=== PATIENT | female | born 1995 | race Caucasian/White ===

== ENCOUNTER 2019-09-06 15:25 | Day surgery (SDC) | payer SELFPAY ==
[2019-09-06] MEDS ORDERED: hydrALAZINE 20 MG/ML VIAL SLOW IVP PRN (15:41)
[2019-09-06 16:01] LABS: #Basophils 0.1 thou/uL (0.0-0.2); #Eosinphils 0.2 thou/uL (0.0-0.7); #Lymphocytes 1.9 thou/uL (1.20-3.40); #Monocytes 0.7 thou/uL (0.11-0.59); #Neutrophils 6.1 thou/uL (1.40-6.50); %Basophils 0.6 % (0.0-1.0); %Eosinophils 2.2 % (0.0-10.0); %Lymphocytes 21.5 % (21.0-51.0); %Monocytes 7.8 % (0.0-10.0); Hemoglobin 11.3 g/dL (12.0-16.0); Mean Corpuscular HGB CONC 33.9 g/dL (32.0-36.0); Mean Corpuscular Hemoglobin 29.1 pg (27.0-31.0); Mean Corpuscular Volume 85.8 fL (78.0-98.0); Mean Platelet Volume 8.3 fL (7.4-10.4); Platelet Count 239 thou/uL (130-400); RBC Distribution Width 12.9 % (11.5-14.5); Red Blood Cell (RBC) Count 3.87 mill/uL (4.20-5.40)
[2019-09-06 16:25] LABS: ALT (SGPT) 14 U/L (8-55); AST (SGOT) 17 U/L (5-34); Albumin 3.3 g/dL (3.5-5.0); Alkaline Phosphatase 138 U/L (40-110); Anion Gap 7 mmol/L (10-20); BUN (Urea Nitrogen) 9 mg/dL (7.0-18.7); Bilirubin, Total 0.2 mg/dL (0.2-1.2); Calc. Creatinine Clearance 0 mL/min (70-130); Calcium 8.9 mg/dL (7.8-10.44); Carbon Dioxide 28 mmol/L (22-29); Chloride 105 mmol/L (98-107); Estimated GFR-MDRD Greater than 90; Globulin 3.4 g/dL (2.4-3.5); Glucose 90 mg/dL (70-105); Potassium 3.9 mmol/L (3.5-5.1); Protein, Total 6.7 g/dL (6.0-8.3); Sodium 136 mmol/L (136-145)
[2019-09-06 16:27] VITALS: BP 135/81; TEMP 98.3; BMI 28.5
[2019-09-06 17:08] LABS: Creatinine, Urine 174.4 mg/dL (47-110)
== END 2019-09-06 19:08 | disposition home or self-care (01) ==
LOC: L&D/OP 15:25
PROVIDERS: ATTEND Advanced Practice Midwife
DX: O16.9 Unspecified maternal hypertension, unspecified trimester (principal); Z3A.00 Weeks of gestation of pregnancy not specified
CPT/HCPCS: 36415; 80053; 82570; 84156; 85025

== ENCOUNTER 2019-09-10 09:26 | Inpatient (IN) | payer SELFPAY ==
[2019-09-10 09:55] VITALS: BMI 28.5
[2019-09-10] MEDS ORDERED: NS / Oxytocin 40 units/1000ml 1,000 ML IV PRN (09:56)
[2019-09-10] MEDS ORDERED: Carboprost 250 MCG/ML AMP IM PRN (09:56)
[2019-09-10] MEDS ORDERED: hydrALAZINE 20 MG/ML VIAL SLOW IVP PRN ×2 (09:56→14:07)
[2019-09-10] MEDS ORDERED: HYDROcodone/Acetaminophen 5/325 mg Tablet PO PRN ×4 (09:56→14:07)
[2019-09-10] MEDS ORDERED: Ondansetron PF 4 MG/2 ML Vial IVP PRN ×2 (09:56→14:07)
[2019-09-10] MEDS ORDERED: Lidocaine 1% (PF) 30 ML VIAL SC PRN (09:56)
[2019-09-10] MEDS ORDERED: Misoprostol 200 MCG TAB PR PRN (09:56)
[2019-09-10] MEDS ORDERED: Ibuprofen 800 MG TAB PO PRN (09:56)
[2019-09-10] MEDS ORDERED: Butorphanol Tartrate 1 MG/ML VIAL SLOW IVP PRN (09:56)
[2019-09-10] MEDS ORDERED: Lactated Ringer's 1,000 ML IV PRN (09:56)
[2019-09-10] MEDS ORDERED: Diphenoxylate HCl/Atropine Tablet PO PRN ×2 (09:56)
[2019-09-10] MEDS ORDERED: Promethazine HCl 25 MG/ML VIAL IM PRN (09:56)
[2019-09-10] MEDS ORDERED: Ondansetron PF 4 MG/2 ML Vial ONE (10:22)
[2019-09-10 10:25] LABS: Hemoglobin 12.1 g/dL (12.0-16.0); Mean Corpuscular HGB CONC 32.8 g/dL (32.0-36.0); Mean Corpuscular Hemoglobin 27.5 pg (27.0-31.0); Mean Corpuscular Volume 83.6 fL (78.0-98.0); Platelet Count 285 thou/uL (130-400); Red Blood Cell (RBC) Count 4.41 mill/uL (4.20-5.40); White Blood Cell (WBC) Count 12.5 thou/uL (4.8-10.8)
[2019-09-10 11:00] LABS: ALT (SGPT) 16 U/L (8-55); AST (SGOT) 16 U/L (5-34); Albumin 3.8 g/dL (3.5-5.0); Alkaline Phosphatase 155 U/L (40-110); Anion Gap 18 mmol/L (10-20); BUN (Urea Nitrogen) 7 mg/dL (7.0-18.7); Bilirubin, Total 0.4 mg/dL (0.2-1.2); Calc. Creatinine Clearance 182 mL/min (70-130); Calcium 9.5 mg/dL (7.8-10.44); Carbon Dioxide 20 mmol/L (22-29); Chloride 104 mmol/L (98-107); Estimated GFR-MDRD Greater than 90; Globulin 3.2 g/dL (2.4-3.5); Glucose 82 mg/dL (70-105); Potassium 3.9 mmol/L (3.5-5.1); Sodium 138 mmol/L (136-145)
[2019-09-10 11:01] LABS: HBSAg Index 0.31 S/CO (0-0.99); Hep B Surf Ag Non-Reactive S/CO (NonReactive); Syphilis Antibody Nonreactive (Nonreactive); Syphilis Antibody Index 0.08 S/CO (<1.00 Non-Reactive)
--- NOTE | 2019-09-10 13:28 | PDOC.OPDEL ---
OB Operative/Delivery Note Delivery Dr/Surgeon: Kyara Cole Pre-Delivery Diagnosis: active labor, other (gestational hypertension) Procedure/Post Delivery Dx: spontaneous vaginal delivery Weeks gestation: 39 Anesthesia: none - Findings A Sex: female - 1 min: 9 - 5 min: 9 - Additional Findings/Plan Placenta delivered: spontaneous Repaired Obstetrical Laceration: none Estimated blood loss: 150ml QBL Compilations/Other Findings: Nuchal cord x1 reduced. Post delivery plan: routine recovery
[2019-09-10] MEDS ORDERED: Milk Of Magnesia 30 ML UDCUP PO PRN (14:07)
[2019-09-10] MEDS ORDERED: Benzocaine-Menthol 82.5 ML CAN TOP PRN (14:07)
[2019-09-10] MEDS ORDERED: NS / Oxytocin 40 units/1000ml 1,000 ML IV SCH (14:07)
[2019-09-10] MEDS ORDERED: Bisacodyl 10 MG SUPP PR PRN (14:07)
[2019-09-10] MEDS ORDERED: Adacel (T-DAP) 0.5 ML SYRINGE IM ONE (14:07)
[2019-09-10] MEDS ORDERED: Misoprostol 200 MCG TAB VAG PRN (14:07)
[2019-09-10] MEDS: Ibuprofen 800 MG TAB PO SCH (16:00)
[2019-09-10] MEDS: Ferrous Sulfate 325 MG TAB PO SCH (17:12)
[2019-09-10] MEDS: Docusate Calcium (SURFAK) 240 MG CAP PO SCH (20:49)
[2019-09-11] MEDS: Ibuprofen 800 MG TAB PO SCH ×3 (00:41→14:02)
[2019-09-11] MEDS: Docusate Calcium (SURFAK) 240 MG CAP PO SCH (08:38)
[2019-09-11] MEDS: Ferrous Sulfate 325 MG TAB PO SCH (08:39)
[2019-09-11] MEDS ORDERED: Prenatal Vitamin 1 TAB PO SCH (09:00)
[2019-09-11 12:11] VITALS: BP 139/87; TEMP 98.2
== END 2019-09-11 16:42 | disposition home or self-care (01) | DRG 807 ==
LOC: L&D 09:26 → 3SW 15:47
PROVIDERS: ADMIT Student in an Organized Health Care Education/Training Program; ATTEND Student in an Organized Health Care Education/Training Program
PROC: 10E0XZZ Delivery of Products of Conception, External Approach (ICD-10-PCS; principal; 2019-09-10)
DX: O13.4 Gestational [pregnancy-induced] hypertension without significant proteinuria, complicating childbirth (principal); Z37.0 Single live birth; Z3A.39 39 weeks gestation of pregnancy
CPT/HCPCS: 36415; 80053; 85027; 86780; 86850; 86900; 86901; 87340; J0595; J2405